=== PATIENT | male | born 1960 | race Caucasian/White ===

== ENCOUNTER → 2019-06-08 07:17 | Outpatient (BNVA) | payer OTHER, SELFPAY | PROVIDERS: Family Provider Nurse Practitioner Family; PCP Nurse Practitioner Family; Visit Provider Nurse Practitioner Family | DX: M79.10 Myalgia, unspecified site (principal); M54.32 Sciatica, left side; E78.5 Hyperlipidemia, unspecified; W57.XXXA Bitten or stung by nonvenomous insect and other nonvenomous arthropods, initial encounter; Z23 Encounter for immunization | CPT/HCPCS: 80053; 80061; 85025 ==

== ENCOUNTER 2019-06-10 10:21 | Outpatient (CLI) | payer OTHER, SELFPAY ==
--- NOTE | 2019-06-10 10:59 | XR_ITS ---
WS: [id number] LUMBAR SPINE: 3 VIEWS TECHNIQUE: AP, lateral and L5-S1 spot. HISTORY: BACK PAIN WITH LEFT SIDED SCIATICA COMPARISON: None available. Normal posterior alignment. Endplate hypertrophic osteophyte formation. No fractures or bone destruct ion. Pedicles are all identified. No loss of disc space or vertebral body height. SI joints are symmetric bilaterally. No soft tissue abnormalities. XR/XR lumbar spine 2-3V* [id number] IMPRESSION: Mild lumbar spondylosis. No fracture.
== END 2019-06-10 10:22 | disposition home or self-care (01) ==
PROVIDERS: Family Provider Nurse Practitioner Family; PCP Nurse Practitioner Family; Referring Provider Nurse Practitioner Family; Visit Provider Nurse Practitioner Family
DX: M54.32 Sciatica, left side (principal)
CPT/HCPCS: 72100

== ENCOUNTER → 2019-06-15 15:38 | Outpatient (BNVA) | payer OTHER, SELFPAY | PROVIDERS: Family Provider Nurse Practitioner Family; PCP Nurse Practitioner Family; Visit Provider Nurse Practitioner Family | DX: Z01.89 Encounter for other specified special examinations (principal) ==

== ENCOUNTER → 2020-04-05 14:23 | Outpatient (BNVA) | payer OTHER, SELFPAY | PROVIDERS: Family Provider Nurse Practitioner Family; PCP Nurse Practitioner Family; Visit Provider Nurse Practitioner Family | DX: Z11.59 Encounter for screening for other viral diseases (principal); J06.9 Acute upper respiratory infection, unspecified; J43.9 Emphysema, unspecified | CPT/HCPCS: 87635 ==

== ENCOUNTER → 2020-12-15 16:03 | Outpatient (BNVA) | payer OTHER, SELFPAY | PROVIDERS: Family Provider Nurse Practitioner Family; PCP Nurse Practitioner Family; Visit Provider Nurse Practitioner Family | DX: E78.5 Hyperlipidemia, unspecified (principal); M79.10 Myalgia, unspecified site; F41.9 Anxiety disorder, unspecified; F32.9 Major depressive disorder, single episode, unspecified; Z12.5 Encounter for screening for malignant neoplasm of prostate; Z00.00 Encounter for general adult medical examination without abnormal findings; J43.9 Emphysema, unspecified; Z12.11 Encounter for screening for malignant neoplasm of colon | CPT/HCPCS: 80053; 80061; 82306; 84443; 85025; G0103 ==

== ENCOUNTER → 2021-03-22 12:02 | Outpatient (BNVA) | payer OTHER, SELFPAY | PROVIDERS: Family Provider Nurse Practitioner Family; PCP Nurse Practitioner Family; Visit Provider Family Medicine | DX: Z12.5 Encounter for screening for malignant neoplasm of prostate (principal); Z12.11 Encounter for screening for malignant neoplasm of colon; R39.198 Other difficulties with micturition; Z76.89 Persons encountering health services in other specified circumstances; N40.0 Benign prostatic hyperplasia without lower urinary tract symptoms; E78.2 Mixed hyperlipidemia | CPT/HCPCS: 84153; 84443 ==

== ENCOUNTER → 2021-04-05 16:37 | Outpatient (BNVA) | payer OTHER, SELFPAY | PROVIDERS: Family Provider Nurse Practitioner Family; PCP Nurse Practitioner Family; Visit Provider Family Medicine | DX: N40.0 Benign prostatic hyperplasia without lower urinary tract symptoms (principal); G56.92 Unspecified mononeuropathy of left upper limb; M54.32 Sciatica, left side; Z12.11 Encounter for screening for malignant neoplasm of colon | CPT/HCPCS: 81003; 87086 ==

== ENCOUNTER 2021-04-20 12:43 | Outpatient (CLI) | payer OTHER, SELFPAY ==
--- NOTE | 2021-04-20 13:00 | XR_ITS ---
WS: [id number] LUMBAR SPINE: 3 VIEWS TECHNIQUE: AP, lateral and L5-S1 spot. HISTORY: Lumbar back pain, LE weakness. COMPARISON: 06/10/2019 Posterior alignment is normal taking into consideration the mild rotation of the vertebral bodies. Pe dicles are all identified. No fractures. Disc spaces are mildly narrowed with mild facet joint arthritis at L4-5 and L5-S1. SI joints are symmetric bilaterally. No soft tissue abnormalities. XR/XR lumbar spine 2-3V* [id number] IMPRESSION: Mild lumbar spondylosis. Similar as compared to the prior study of 06/10/2019. No fractures.
== END 2021-04-20 12:44 | disposition home or self-care (01) ==
PROVIDERS: PCP Family Medicine; Visit Provider Family Medicine
DX: R53.1 Weakness (principal); M47.816 Spondylosis without myelopathy or radiculopathy, lumbar region
CPT/HCPCS: 72100

== ENCOUNTER → 2021-06-08 09:24 | Outpatient (BNVA) | payer OTHER, SELFPAY | PROVIDERS: PCP Family Medicine; Visit Provider Family Medicine | DX: E78.2 Mixed hyperlipidemia (principal); G56.92 Unspecified mononeuropathy of left upper limb; N40.0 Benign prostatic hyperplasia without lower urinary tract symptoms; M54.50 Low back pain, unspecified | CPT/HCPCS: 80048; 80061 ==

== ENCOUNTER → 2021-06-23 15:42 | Outpatient (BNVA) | payer OTHER, SELFPAY | PROVIDERS: PCP Family Medicine; Visit Provider Surgery | DX: Z20.822 Contact with and (suspected) exposure to COVID-19 (principal); Z11.52 Encounter for screening for COVID-19 | CPT/HCPCS: 87635 ==

== ENCOUNTER 2021-07-26 07:46 | Day surgery (SDC) | payer OTHER, SELFPAY ==
[2021-07-24 10:06] VITALS: BMI 33.9
--- NOTE | 2021-07-26 07:52 | P.ANESASSM_ITS ---
Pre-Anesthetic Assessment Height/Weight: Height 1.96 m Weight 129.727 kg Operation Date: 07/26/21 09:30 Proposed Procedures p Colonoscopy 66882/ Z12.11(Not Applicable) - Amrik Garcia MD Familial anesthetic complications: None Was Beta Alexsandra taken within 24 hours: N/A Was Clonidine taken within 24 hours: N/A Last intake: > 8 hrs Social No alcohol and No tobacco Exam alert, oriented x 3, clear to auscultation bilaterally and regular rate & rhythm Airway Cervical ROM: within normal limits Mallampati: Class I Dentition: chipped Pulmonary Asthma (childhood) and Chronic Obstructive Pulmonary Disease (seen on cxr - has inhaler, but goes months without requiring it) Musc/skel Lower Back Pain and Osteoarthritis/DJD Anesthetic Plan ASA status: 2 Anesthesia: MAC Medications/Allergies Home Medications Medication Instructions Recorded Confirmed Last Taken Type albuterol sulfate 90 mcg/actuation 2 puff INHALATION Q6H PRN #18 gm 12/15/20 07/24/21 Unknown Rx aerosol inhaler sertraline 50 mg tablet (Zoloft) 50 mg PO DAILY #30 tab 12/15/20 07/24/21 Unknown Rx simvastatin 20 mg tablet 20 mg PO DAILY #30 tab 03/22/21 07/24/21 Unknown Rx gabapentin 600 mg tablet 600 mg PO BID #60 tab 07/04/21 07/24/21 Unknown Rx acetylcysteine 600 mg tablet (NAC) 600 mg PO DAILY 07/24/21 07/24/21 Unknown History cholecalciferol (vitamin D3) 125 125 mcg PO DAILY 07/24/21 07/24/21 Unknown History mcg (5,000 unit) tablet (Vitamin D3) Allergies Allergy/AdvReac Type Severity Reaction Status Date / Time Hgwxxwz-NVP-LwI Reductase Allergy muscle Verified 06/08/21 08:29 Inhibitor weakness [Fxgdhlo-Cjx-Dut Reductase Inhibitor] [facility] Anesthesia Medical History (Updated 04/27/21 @ 12:31 by Jose Chiang DO) Anxiety and depression Hyperlipidemia Obesity Seasonal allergies Family History Mother Cancer mother has history of breast cancer Father Cancer father from throat cancer Social History Smoking and tobacco status: never smoked Quit status (tobacco): has quit using tobacco Year quit tobacco: 2012 Former quit date comment: smoked 2 PPD x 30 yrs Second hand smoke exposure: No Alcohol intake: never Lives independently: Yes Household members: spouse Marital status: Current occupational status: employed History of recent travel: No Current gender identity: Male Data Anesthesia Cardiac Studies: No Data to Display
[2021-07-26 08:14] VITALS: BP 150/86; PULSE 96; RESP 16; TEMP 36.3; O2SAT 95
[2021-07-26] MEDS: sodium chloride 0.9% 1,000 ML 30 ML IV (08:17)
--- NOTE | 2021-07-26 08:57 | P.HP_ITS ---
Same Day Surgery H&P Indication for Procedure/HPI DATE OF PROCEDURE: July 26, 2021 CHIEF COMPLAINT/INDICATIONFOR SURGICAL PROCEDURE: screening PREOP DIAGNOSIS: diagnostic PLANNED PROCEDURE: Operation Date: 07/26/21 09:30 Proposed Procedures p Colonoscopy 48986/ Z12.11(Not Applicable) - Amrik Garcia MD Medications/Allergies* Home Medications Medication Instructions Recorded Confirmed Type acetylcysteine 600 mg tablet (NAC) 600 mg PO DAILY 07/24/21 07/24/21 History cholecalciferol (vitamin D3) 125 125 mcg PO DAILY 07/24/21 07/24/21 History mcg (5,000 unit) tablet (Vitamin D3) Kratom 5 g PO DAILY PRN 07/26/21 07/26/21 History Allergies/Adverse Reactions Allergy/AdvReac Type Severity Reaction Status Date / Time rosuvastatin [From Crestor] Allergy ADV-Weaknes Verified 07/26/21 08:06 s Current Medications: Generic Name Dose Route Start Last Admin Trade Name Freq PRN Reason Stop Dose Admin Sodium Chloride 1,000 mls @ 30 mls/hr 07/26/21 08:00 07/26/21 08:17 Sodium Chloride 0.9% IV 07/27/21 07:59 30 mls/hr .Q24H ROCHELLE Administration Pertinent History/Comorbid Conditions* Medical History (Updated 04/27/21 @ 12:31 by Jose Chiang DO) Anxiety and depression Hyperlipidemia Obesity Seasonal allergies Family History (Updated 06/08/19 @ 07:36 by Mora Lopez LPN) Father Cancer Mother mother has history of breast cancer Father father from throat cancer Social History Smoking and tobacco status: never smoked Quit status (tobacco): has quit using tobacco Year quit tobacco: 2012 Former quit date comment: smoked 2 PPD x 30 yrs Second hand smoke exposure: No Alcohol intake: never Lives independently: Yes Household members: spouse Marital status: Current occupational status: employed History of recent travel: No Current gender identity: Male Pertinent Exam Findings alert, oriented x 3 and regular rate & rhythm Recommendations Surgery/Procedure today Coding Level of Care Code Acute Extractor Operator Solvent Process for Humberto Camacho
[2021-07-26 10:09] VITALS: BP 100/51; PULSE 89; RESP 18; TEMP 36.2; O2SAT 97
[2021-07-26 10:22] VITALS: BP 110/63; PULSE 79; RESP 18; TEMP 36.3; O2SAT 96
--- NOTE | 2021-07-26 12:59 | ANE.PACU2 ---
Inpatient post-anesthesia follow up: Airway intact: Yes Vital signs: Temperature 97.4 F Pulse Rate 79 Respiratory Rate 18 Blood Pressure 110/63 Pulse Oximetry 96 Oxygen Delivery Me thod Room Air Oxygen Flow Rate Fraction of Inspir ed Oxygen Hydration adequate: Yes Nausea and vomiting: No Pain level: 1 Mental status: Baseline
== END 2021-07-26 10:34 | disposition home or self-care (01) ==
PROVIDERS: PCP Family Medicine; Visit Provider Surgery
PROC: 0DJD8ZZ Inspection of Lower Intestinal Tract, Via Natural or Artificial Opening Endoscopic (ICD-10-PCS; CPT 45378; principal; 2021-07-26 09:30)
DX: Z12.11 Encounter for screening for malignant neoplasm of colon (principal); K57.30 Diverticulosis of large intestine without perforation or abscess without bleeding; D12.3 Benign neoplasm of transverse colon; F41.9 Anxiety disorder, unspecified; F32.9 Major depressive disorder, single episode, unspecified; E78.5 Hyperlipidemia, unspecified; E66.9 Obesity, unspecified; Z68.33 Body mass index [BMI] 33.0-33.9, adult; Z87.891 Personal history of nicotine dependence; J44.9 Chronic obstructive pulmonary disease, unspecified
CPT/HCPCS: 45380; 88305; J2704; J7030

== ENCOUNTER 2022-04-07 17:02 | Emergency (ER) | payer OTHER, SELFPAY ==
[2022-04-07 17:06] VITALS: BMI 32.0
[2022-04-07 17:09] VITALS: BP 185/104; PULSE 81; RESP 18; TEMP 36.7; O2SAT 97
--- NOTE | 2022-04-07 17:35 | W.ED.EYEPROB ---
HPI - Eye Problem General: Chief complaint: Eye Problems Stated complaint: black spots in vision Time Seen by Provider: 04/07/22 17:13 Source: patient History of Present Illness: 62-year-old gentleman with a history of cataracts. He presents after beginning to notice black spots in his vision on the right side only while watching TV. He has a whispiness in the periphery of his vision as well. chief complaint: vision change Onset (ago): hour(s) (2) Onset description: gradual Duration: intermittent Location: right eye Eye Symptoms: other Place: home Mechanism: none Severity: moderate Associated symptoms: Reports headache(s) (mild right sided); Denies cough, fever(s), nausea, neck pain, numbness, rhinorrhea, short of breath, vomiting or weakness Treatments Prior to Arrival: none Review of Systems Const: Denies: fever(s) Eyes: Reports: change in vision; Denies: photophobia, eye discomfort or eye discharge ENMT: Denies: throat pain Card: Denies: chest pain GI: Denies: nausea or vomiting Musc: Denies: neck pain Neuro: Reports: headache(s) (mild right sided) PFSH ED PFSH: Medical History Anxiety and depression Hyperlipidemia Obesity Seasonal allergies Surgical History Status post colonoscopy with polypectomy (07/26/21) Mild sigmoid diverticulosis, 5 mm sessile transverse colon polyp and 1 cm sessile hepatic flexure polyp Family History Mother Cancer mother has history of breast cancer Father Cancer father from throat cancer Social History Smoking and tobacco status: never smoked Quit status (tobacco): has quit using tobacco Year quit tobacco: 2012 Former quit date comment: smoked 2 PPD x 30 yrs Second hand smoke exposure: No Alcohol intake: never Lives independently: Yes Household members: spouse Marital status: Current occupational status: employed History of recent travel: No Current gender identity: Male Physical Exam Const: COMMON NORMALS: no acute distress GENERAL APPEARANCE: cooperative HENMT: COMMON NORMALS: normocephalic, atraumatic and Normal external nose present HEAD & SCALP: normocephalic and atraumatic FACE & SINUS: normal facial exam and face symmetric NOSE: Normal external nose present Eye: COMMON NORMALS: Equal, round and reactive pupils present, EOMs intact bilaterally and conjunctivae normal GENERAL EYE: normal light reflex VISUAL ACUITY: Yes acuity normal ALIGNMENT: Yes alignment normal PERIORBITAL: periorbital findings normal EYELID: eyelids normal CONJUNCTIVA: Yes conjunctivae normal SCLERA: sclerae normal PUPIL: Yes Equal, round and reactive pupils present DIRECT OPHTHALMOSCOPY: Yes normal light reflex, Yes anterior chamber normal, No photophobia, No macular abnormality and No retinal abnormality (do not see a defect on fundo) Chest: CHEST: Yes Symmetrical chest wall rise Resp: COMMON NORMALS: normal respiratory effort, No use of accessory muscles and clear to auscultation bilaterally AUSCULTATION: clear to auscultation bilaterally Cardio: COMMON NORMALS: regular rate and regular rhythm RATE: regular rate RHYTHM: regular rhythm Neuro: EDEN COMA SCALE: document GCS findings [place] coma scale eye opening: Spontaneous [place] coma scale verbal response: Orientated [place] coma scale motor response: Obey commands [place] coma scale total score: 15 COMMON NORMALS: moves all extremities and no focal motor deficits SPEECH: speech normal Course Vital Signs: Vital signs: Vital Signs Temperature 98.1 F 04/07/22 17:09 Pulse Rate 78 04/07/22 18:37 Respiratory Rate 18 04/07/22 17:09 Blood Pressure 142/99 04/07/22 18:37 Pulse Oximetry 95 04/07/22 18:37 Oxygen Delivery Me thod 04/07/22 17:09 MDM - Eye Problem Medical Decision Making 62-year-old spotty vision in the right side which seems to be more like 1 spot in vision that seems to be more consistent, and appears whispy to him. In the differential diagnosis would be retinal problem versus an ocular migraine, as the patient does have a mild headache on the right side. He will be given sumatriptan to see if improving the headache improves his vision. Otherwise I have spoken with ophthalmology, and the recommendations are follow-up on Saturday morning in clinic for repeat exam since there is no fixed visual field loss currently. Discharge Plan Discharge Patient Disposition: Home Clinical Impression: Floaters in visual field Condition: Stable Prescriptions: No Action gabapentin 600 mg tablet 600 mg PO BID Qty: 60 5RF albuterol sulfate 90 mcg/actuation HFA aerosol inhaler See Rx Instructions .ROUTE .COMPLEX Qty: 17 5RF Dose Instruction: INHALE 2 PUFFS EVERY SIX HOURS NEEDED FORBRONCHOSPASM Rx Instructions: INHALE 2 PUFFS EVERY SIX HOURS NEEDED FORBRONCHOSPASM simvastatin 20 mg tablet See Rx Instructions .ROUTE .COMPLEX Qty: 30 5RF Dose Instruction: TAKE ONE TABLET BY MOUTH DAILY Rx Instructions: TAKE ONE TABLET BY MOUTH DAILY sertraline [Zoloft] 50 mg tablet 50 mg PO DAILY Qty: 90 2RF cholecalciferol (vitamin D3) [Vitamin D3] 125 mcg (5,000 unit) Tablet 125 mcg PO DAILY NAC 600 mg Tablet 600 mg PO DAILY Kratom 5 g PO DAILY PRN (Reason: Pain) Discharge Orders: Discharge ED (Routine); Ordered 04/07/22 Ordered By: Matthew Gaines Referrals: Jose Chiang, [Primary Care Provider] - Edy Maguire [Physician] - 1-3 days Activity Restrictions/Additional Instructions: Do not lift push or pull anything heavy. Return for more permanent vision loss. Return for eye pain, any other concerning symptoms. Follow-up with ophthalmology as directed on Saturday morning. Go to the clinic around 8:30 in the morning. Coding Level of Care Code ED Oncology Research Rn for Humberto Camacho Exam Detailed
[2022-04-07 18:00] VITALS: BP 138/97; PULSE 70; O2SAT 93
[2022-04-07] MEDS: SUMAtriptan 6 mg/0.5 mL SDV SUBCUT (18:24)
[2022-04-07 18:37] VITALS: BP 142/99; PULSE 78; O2SAT 95
== END 2022-04-07 18:28 | disposition home or self-care (01) ==
PROVIDERS: Emergency Provider Emergency Medicine; PCP Family Medicine
DX: H43.391 Other vitreous opacities, right eye (principal)
CPT/HCPCS: 96372; 99284; J3030

== ENCOUNTER → 2022-04-23 10:30 | Outpatient (BNVA) | payer OTHER, SELFPAY | PROVIDERS: PCP Family Medicine; Visit Provider Family Medicine | DX: E78.5 Hyperlipidemia, unspecified (principal); N40.0 Benign prostatic hyperplasia without lower urinary tract symptoms; Z01.89 Encounter for other specified special examinations; Z23 Encounter for immunization | CPT/HCPCS: 80053; 80061; 83036; 84153 ==

== ENCOUNTER 2022-09-26 08:36 | Outpatient (CLI) | payer OTHER, SELFPAY ==
--- NOTE | 2022-09-26 08:48 | XR_ITS ---
WS: [id number] Exam: XR KUB [id number] Date/Time of Exam: 09/26/2022 8:48 AM Reason For Exam: Worsening Left sided pain No bowel obstruction or free air. Moderate amount retained stool in the left colon. No sign of organ enlargement. Regional bony elements are intact. Moderate amount stool in the rectosigmoid colon. XR/XR KUB [id number] IMPRESSION: 1. Moderate amount retained stool in the rectosigmoid and left colon. 2. No acute abdominal process noted.
== END 2022-09-26 08:37 | disposition home or self-care (01) ==
LOC: RAD 08:41
PROVIDERS: PCP Family Medicine; Visit Provider Family Medicine
DX: R10.9 Unspecified abdominal pain (principal)
CPT/HCPCS: 74018; 81000

== ENCOUNTER 2023-01-15 11:57 | Outpatient (CLI) | payer OTHER, SELFPAY ==
--- NOTE | 2023-01-15 12:15 | CT_ITS ---
WS: [id number] CT ABDOMEN AND PELVIS NONCONTRAST HISTORY: R10.9 - Unspecified abdominal pain TECHNIQUE: Imaging performed through the abdomen and pelvis. Coronal and sagittal reformats are submi tted. All CT scans at [facility] use at least one of these dose optimization techniques: auto mated exposure control; mA and/or kV adjustment per patient size (includes targeted exams where dose is matched to clinical indication); or iterative reconstruction. DLP: 950.18 mGy.cm COMPARISON: None available. Lower thorax: Lung bases are clear. Visualized heart is normal. No hiatal hernia. Liver: Normal size liver. No mass or bile duct dilatation. Gallbladder: Normal gallbladder. No pericholecystic fluid or cholelithiasis. No gallbladder wall thic kening. Pancreas: Normal size and attenuation. Normal pancreatic duct. No pancreatitis or mass. Spleen: Normal. Adrenal glands: Normal right adrenal gland. Large mass associated with the left adrenal gland with lo w-attenuation. Mass measures 3.7 x 4.7 cm and extends over a length of 4.5 cm. Hounsfield units are l ess than 10 suggesting this is probably a benign adenoma but due to its size needs to be further eval uated. Right kidney: Normal size kidney. Low-attenuation 1.4 cm mass in the posterior mid kidney. No hydrone phrosis. Left kidney: Normal size kidney with no mass or hydronephrosis. Aorta: Mild atherosclerosis abdominal aorta with no aneurysm. No free fluid, intraperitoneal air or significant lymphadenopathy. GI tract: Nondistended stomach. Several small bowel loops in the pelvis are mildly dilated measuring up to 2.9 cm. There is increasing material within the lumen resembling fecal material. Marked fecal r etention and tortuosity of the colon. Normal appendix. Mild diverticular disease without acute divert iculitis. Abdominal wall: Small umbilical hernia contains fat only. Pelvis: Bilateral patent inguinal canals contain fat only. Normally distended urinary bladder. Mild p rostate gland enlargement. No free fluid or adenopathy. Benign lipoma right iliopsoas muscle anterior to the right femoral head measures 2.7 cm. Osseous structures: Mild anterior wedging of T9 and T10. IMPRESSION: 1. Left adrenal mass measures 3.7 x 4.7 x 4.5 cm. Hounsfield units are low. This very likely may be an adenoma but due to its size needs to be further evaluated. Recommend follow-up adrenal mass CT pro tocol to determine washout values. 2. Mildly prominent small bowel loops in the pelvis with early changes of fecalization. This pattern can be seen with longstanding incomplete obstruction. There is no mass or obstructive site identifie d by this exam. Can be related to adhesions or internal hernia. 3. Mild atherosclerosis aorta. 4. Moderate constipation.
--- NOTE | 2023-01-15 12:16 | CT_ITS ---
WS: [id number] LDCT LUNG CANCER SCREENING HISTORY: NICOTINE DEPENDENCE, CIGARETTES TECHNIQUE: Axial imaging performed from the apices to 1 cm below the costophrenic angles. Coronal and sagittal reformats are submitted with axial MIP series. All CT scans at [facility] use at least one of these dose optimization techniques: automated exposure control; mA and/or kV adjustment per patient size (includes targeted exams where dose is matched to clinical indication); or iterativ e reconstruction. DLP: 113.41 mGy.cm DIvol: Mean CTDIvol: 2.50 (mGy) COMPARISON: None available. Diagnostic quality: Satisfactory Lungs: No pulmonary mass or nodules. No pneumonia. Mild dependent changes at the lung bases. No endob ronchial lesions. Heart: Normal size heart with no pericardial effusion.. Other findings: No significant mediastinal or hilar adenopathy. No hiatal hernia. Well-circumscribed left adrenal mass measures 4.9 x 3.0 cm. Hounsfield units are less than 10. No adrenal mass on the ri ght. Degenerative rotary scoliosis lumbar spine. Mild anterior wedging of T6, T7, T8, T9 and T10. IMPRESSION: CT/CT lung screening [id number] LUNG-RADS: 1S-Negative with Significant Findings FOLLOW UP: 12 Month: Continue annual screening with LDCT OTHER FINDINGS (S MODIFIER): Left adrenal mass, greater than 4 cm. Recommend ad renal mass CT protocol.
== END 2023-01-15 11:58 | disposition home or self-care (01) ==
LOC: RAD 11:57
PROVIDERS: PCP Family Medicine; Visit Provider Family Medicine
DX: Z12.2 Encounter for screening for malignant neoplasm of respiratory organs (principal); F17.219 Nicotine dependence, cigarettes, with unspecified nicotine-induced disorders; R10.9 Unspecified abdominal pain; E27.9 Disorder of adrenal gland, unspecified; I70.0 Atherosclerosis of aorta; K59.00 Constipation, unspecified
CPT/HCPCS: 71271; 74176

== ENCOUNTER 2023-02-08 12:37 | Outpatient (CLI) | payer OTHER, SELFPAY ==
--- NOTE | 2023-02-08 13:00 | CT_ITS ---
WS: [id number] CT ABDOMEN AND PELVIS WITH AND WITHOUT CONTRAST HISTORY: LEFT ADRENAL MASS TECHNIQUE: Unenhanced 2 mm axial imaging first performed through the abdomen. Post contrast imaging t hrough the abdomen and pelvis. Oral contrast has been provided. Sagittal and coronal reformats are s ubmitted. All CT scans at [facility] use at least one of these dose optimization techniques: automated exposure control; mA and/or kV adjustment per patient size (includes targeted exams where d ose is matched to clinical indication); or iterative reconstruction. CONTRAST: Omnipaque 350; 95 mL IV. DLP: 2854.30 mGy.cm COMPARISON: 01/15/2023 Slight elevation of the LEFT hemidiaphragm with LEFT basilar atelectasis. Normal size heart. RIGHT adrenal gland: Normal. LEFT adrenal gland: Enlarged low-attenuation mass measuring 3.5 x 4.5 cm as previously described. Krysten nsfield units suggest this is an adenoma but the size is concerning and there is mild increased densi ty centrally. The absolute washout value and relative washout values cannot confirm this is a benign adenoma. A favor this is probably a lipid poor adenoma or adenoma with hemorrhage present because in the washout values to be abnormal. Negative liver and gallbladder. Normal pancreas and spleen. Negative gallbladder. No renal obstructio n. Cortical cyst RIGHT kidney measures 1.2 cm. No GI tract obstruction. Prominent small bowel loop within the pelvis is no longer present. Marked di ffuse constipation. Normal appendix. No adenopathy or ascites. Small ventral abdominal wall hernia. P rostate gland enlargement. No destructive process of the bones. IMPRESSION: 1. LEFT adrenal gland mass measures 3.5 x 4.5 cm. Noncontrast Hounsfield units suggest this is a omaira gn adenoma but due to its size additional characterization was necessary. The absolute and relative w ashout values cannot confirm this is a benign adenoma. I suspect the washout values may be abnormal b ecause of hemorrhage or lipid poor adenoma. This can be reevaluated by MRI adrenal gland protocol or 3 to 4-month follow-up CT adrenal gland protocol. 2. Diffuse constipation. 3. Resolved fecalization of the distal small bowel.
[2023-02-08 13:14] LABS: Blood Urea Nitrogen 22 mg/dL (8-23); Glomerular Filtration Rate 68.1 mL/min (90-130)
[2023-02-08] MEDS: iohexol 350 mg/mL 500 mL Btl (per mL) IV (13:27)
== END 2023-02-08 12:38 | disposition home or self-care (01) ==
PROVIDERS: PCP Family Medicine; Visit Provider Family Medicine
DX: E27.8 Other specified disorders of adrenal gland (principal); K59.00 Constipation, unspecified
CPT/HCPCS: 74178; 82565; 84520; Q9967

== ENCOUNTER 2023-04-30 10:39 | Outpatient (CLI) | payer OTHER, SELFPAY ==
--- NOTE | 2023-04-30 10:45 | MR_ITS ---
WS: [id number] MRI ADRENAL GLANDS WITH AND WITHOUT CONTRAST. COMPARISON: 01/15/2023 and 02/08/2023 Multiplanar, multisequence imaging is performed with and without contrast. MultiHance 14 mL. Multiple sequences are performed through the abdomen to evaluate the adrenal glands. In and out of ph ase imaging is included. On the out of phase images there is significant dropout of signal within the adrenal gland. There is still some very mild heterogeneity within the central LEFT adrenal mass. The re is slight variable enhancement. The variable signal is probably due to some areas of hemorrhage or increased protein content. The adrenal gland measures 3.3 x 4.7 cm and is similar in size to the ruiz or CTs. This is a well-circumscribed mass. Normal RIGHT adrenal gland. Cholelithiasis. RIGHT renal cyst 1.7 cm. No ascites. No adenopathy. IMPRESSION: 1. Well-circumscribed LEFT adrenal mass measures 3.3 x 4.7 cm with no interval change since 01/15/2023 . Majority of the LEFT adrenal mass demonstrates dropout signal consistent with an adenoma containing lipid. There is some very minimal heterogeneity which may be due to prior hemorrhage or proteinaceou s content. Statistically this is most likely a benign adenoma. Due to its size greater than 4 cm cons ider additional 6-month follow-up MRI adrenal glands with and without contrast to confirm stability. 2. Cholelithiasis.
[2023-04-30] MEDS: gadobenate dimeglumine 20 mL vial IV (11:47)
== END 2023-04-30 10:40 | disposition home or self-care (01) ==
LOC: RAD 10:39
PROVIDERS: PCP Family Medicine; Visit Provider Family Medicine
DX: E27.8 Other specified disorders of adrenal gland (principal); K80.20 Calculus of gallbladder without cholecystitis without obstruction
CPT/HCPCS: 74183; A9577

== ENCOUNTER 2023-08-06 06:20 | Outpatient (CLI) | payer OTHER, SELFPAY ==
--- NOTE | 2023-08-06 06:30 | USCV_ITS ---
Samantha Du Age: 63 Gender: M : 1960 Exam Date: 08/06/2023 06:24 Ordering Phys: Jose Chiang DO Technologist: CHLOÉ Exam Location: [facility] – [place], [place] Indication: RLE PAIN AND SWELLING HISTORY: Lower extremity swelling. Lower extremity pain. PROCEDURES: Venous duplex imaging was performed in only the right lower extremity. The following venous structures were evaluated: common femoral vein, profunda vein, proximal portion of the greater saphenous vein, superficial femoral vein, and the popliteal vein. In addition, the posterior tibial and peroneal trunk were evaluated. Serial compression, augmentation maneuvers, and spectral Doppler flow evaluation were performed. FINDINGS: No evidence of DVT seen in any vessel visualized at this time. CONCLUSIONS In Area of interested, compressible varicose veins seen No evidence of right lower extremity DVT. Yasmany Alejo MD (Electronically Signed) Final Date: 06 August 2023 08:53 S
== END 2023-08-06 06:21 | disposition home or self-care (01) ==
LOC: RAD 06:20
PROVIDERS: PCP Family Medicine; Visit Provider Family Medicine
DX: M79.89 Other specified soft tissue disorders (principal); M79.661 Pain in right lower leg; R22.43 Localized swelling, mass and lump, lower limb, bilateral
CPT/HCPCS: 93971

== ENCOUNTER → 2023-08-15 10:40 | Outpatient (BNVA) | payer OTHER, SELFPAY | PROVIDERS: PCP Family Medicine; Visit Provider Family Medicine | DX: E78.2 Mixed hyperlipidemia; J43.9 Emphysema, unspecified; N40.1 Benign prostatic hyperplasia with lower urinary tract symptoms; R39.12 Poor urinary stream; Z12.5 Encounter for screening for malignant neoplasm of prostate | CPT/HCPCS: 80053; 80061; 84443; 85025; G0103 ==

== ENCOUNTER 2024-01-16 06:56 | Outpatient (CLI) | payer OTHER, SELFPAY ==
--- NOTE | 2024-01-16 07:10 | MR_ITS ---
WS: [id number] MRI ADRENAL GLANDS WITH AND WITHOUT CONTRAST. COMPARISON: Prior MRI 04/30/2023, CT 02/08/2023, 01/15/2023 Multiplanar, multisequence imaging is performed with and without contrast. MultiHance 20 mL. Reidentified is a well-circumscribed but variable signal mass in the LEFT adrenal gland. Mass measure s 3.4 cm transversely by 4.5 cm anterior-posterior and 4.5 cm superior-inferior. Mass has not changed significantly in size and is well circumscribed. On the out of phase imaging there is loss of signal but there is also variable enhancement. The pattern is not typical for a benign adenoma. There is co ntinued without washout early. There is variable signal on the T2 sequences with central increased si gnal. The RIGHT adrenal gland is negative. There are benign cysts within each kidney which do not enhance. No adenopathy. Cholelithiasis with suspected on the prior study but not confirmed by this MRI exam. V isualized colon demonstrates fecal retention and constipation. MR/MR adrenals wo/w con [id number] IMPRESSION: 1. Reidentified is a LEFT adrenal mass measuring 3.4 x 4.5 x 4.5 cm which has not significantly increased in size since 04/22/[address] 01/15/2023. There is loss of signal on the out of phase sequence but there is also variable enhancem ent which persists on the delayed sequences. This may be an atypical adenoma bu t this cannot be confirmed by MRI or CT. Adrenal cortical carcinoma should be c onsidered. Does not have the typical enhancement pattern for pheochromocytoma. Recommend surgical evaluation with possible removal. 2. Negative RIGHT adrenal gland. Notified Jose Chiang DO at 01/16/2024 8:40 AM.
[2024-01-16] MEDS: gadobenate dimeglumine 20 mL vial IV (08:34)
== END 2024-01-16 06:57 | disposition home or self-care (01) ==
LOC: RAD 06:58
PROVIDERS: PCP Family Medicine; Visit Provider Family Medicine
DX: E27.8 Other specified disorders of adrenal gland (principal)
CPT/HCPCS: 74183; A9577

== ENCOUNTER 2024-02-28 07:57 | Outpatient (CLI) | payer OTHER, SELFPAY ==
--- NOTE | 2024-02-28 08:00 | CT_ITS ---
WS: [id number] LDCT LUNG CANCER SCREENING TECHNIQUE: Noncontrast CT of the chest with coronal and sagittal reformatted images. CLINICAL INFORMATION: screening COMPARISON: 2022 DLP: 134.71 mGy.cm DIvol: Mean CTDIvol: 2.80 (mGy) All CT scans at [facility] use at least one of these dose optimization techniques: automat ed exposure control; mA and/or kV adjustment per patient size (includes targeted exams where dose is matched to clinical indication); or iterative reconstruction. FINDINGS: No new suspicious pulmonary parenchymal abnormalities. Tiny 3 mm noncalcified nodule LEFT upper lobe. Subsegmental atelectasis in the lingula and RIGHT middle lobe. Subsegmental atelectasis LEFT lower lo be. Normal caliber thoracic aorta. Calcified LEFT hilar nodes. No mediastinal or hilar lymphadenopath y. No axillary lymphadenopathy. Stable LEFT adrenal nodule likely adenoma measuring 4.5 cm. Stable chronic anterior wedging of the [facility] spine CT/CT lung screening [id number] IMPRESSION: LUNG-RADS: 2-Benign Appearance or Behavior FOLLOW UP: 12 Month: Continue annual screening with LDCT
== END 2024-02-28 07:58 | disposition home or self-care (01) ==
LOC: RAD 07:57
PROVIDERS: PCP Family Medicine; Visit Provider Family Medicine
DX: Z12.2 Encounter for screening for malignant neoplasm of respiratory organs (principal); F17.219 Nicotine dependence, cigarettes, with unspecified nicotine-induced disorders; J98.11 Atelectasis; I89.8 Other specified noninfective disorders of lymphatic vessels and lymph nodes; D35.02 Benign neoplasm of left adrenal gland
CPT/HCPCS: 71271

== ENCOUNTER 2024-08-31 11:28 | Outpatient (CLI) | payer OTHER, SELFPAY ==
[2024-08-31 12:33] LABS: Basophils % 0.2 %; Eosinophils # 0.1 10^3/uL (0.0-0.8); Eosinophils % 1.2 %; Hematocrit 40.7 % (37-53); Lymphocytes # 1.7 10^3/uL (0.8-4.8); Lymphocytes % 25.9 %; Mean Corpuscular HGB Conc 32.4 g/dL (30-55); Mean Corpuscular Hemoglobin 31.2 pg (27-33); Mean Corpuscular Volume 96.2 fl (82-101); Mean Platelet Volume 10.8 fL (7.4-10.4); Monocytes # 0.4 10^3/uL (0.2-0.9); Neutrophils # 4.34 10^3/uL (1.8-7.7); Neutrophils % 66.4 %; Nucleated Red Blood Cells % 0 %; Platelet Count 181 10^3/cmm (157-399); Red Blood Count 4.23 10^6/uL (3.85-5.65); Red Cell Distribution Width 12.8 % (12.1-15.1); White Blood Count 6.53 10^3/uL (3.29-11.43)
[2024-08-31 13:05] LABS: Alanine Aminotransferase 7 U/L (0-41); Albumin Level 4.4 g/dL (3.5-5.2); Alkaline Phosphatase 63 U/L (40-130); Anion Gap 13.9 (5-19); Aspartate Amino Transferase 14 U/L (0-40); Blood Urea Nitrogen 15 mg/dL (8-23); Calcium 8.8 mg/dL (8.5-10.5); Carbon Dioxide 27 mmol/L (22-29); Chloride 102 mmol/L (98-107); Chol HDL Ratio 2.76 mg/dL (1.0-5.00); Cholesterol 210 mg/dL (0-200); Cortisol Random 5.72 ug/dL (2.47-19.5); Globulin 2.7 g/dL (1.3-4.6); Glomerular Filtration Rate 97.6 mL/min (90-130); Glucose 97 mg/dL (65-115); HDL Cholesterol 76 mg/dL (60-100); LDL Cholesterol Calculated 120 mg/dL (50-129); LDL HDL Ratio 1.58 RATIO (0.00-3.22); Osmolality Calculated 287 mOsm/kg (285-295); Potassium 4.9 mmol/L (3.5-5.1); Sodium 138 mmol/L (136-145); Total Bilirubin 0.3 mg/dL (0.15-1.2); Total Protein 7.1 g/dL (6.6-8.7); Triglycerides 68 mg/dL (0-150)
== END 2024-08-31 11:29 | disposition home or self-care (01) ==
LOC: LAB 11:32
PROVIDERS: PCP Family Medicine; Visit Provider Family Medicine
DX: E27.8 Other specified disorders of adrenal gland (principal); E78.5 Hyperlipidemia, unspecified
CPT/HCPCS: 36415; 80053; 80061; 82088; 82384; 82533; 82570; 85025; 90686

== ENCOUNTER 2024-12-23 07:54 | Outpatient (CLI) | payer OTHER, SELFPAY ==
--- NOTE | 2024-12-23 08:00 | MR_ITS ---
WS: [id number] MRI/MRCP OF THE ABDOMEN WITHOUT GADOLINIUM ENHANCEMENT TECHNIQUE: Coronal T2 Fase BH, Axial T2 Fase BH, Axial T2 FS BH, Zxial 3D Figueroa BH, Axial DWI BH, 2D MRCP Radial BH, 3D MRCP (Resp), and Axial 3D Dyn BH Post sequences. CLINICAL INFORMATION: adrenal mass COMPARISON: Multiple prior studies including MRI 01/16/2024 and 04/30/2023 FINDINGS: Previously described adrenal mass with variable enhancement and signal dropout on the out of phase imaging is stable in size measuring 3.5 x 4.5 cm. This is not significant changed compared to the prior studies. Normal RIGHT adrenal gland. No hydronephrosis in either kidney. Small bilateral renal cysts. Tiny esophageal hiatal hernia. Normal visualized pancreas. Normal portal vein and splenic vein. Normal gallbladder. Small hepatic cyst. MR/MR adrenals wo/w con [id number] Impression: 1. No change in the previously described LEFT adrenal mass measuring 3.5 x 4.5 cm. This does demonstrate signal dropout on the out of phase imaging, however this remains indeterminant due to variable heterogeneous enhancement and large size. Considerations include atypical adenoma or adrenal cortical carcinoma fabián ecially considering large size. Recommend continued surveillance if resection i s not performed. 2. RIGHT adrenal gland is normal. 3. No other suspicious findings.
[2024-12-23] MEDS: gadobenate dimeglumine 20 mL vial IV (08:35)
== END 2024-12-23 07:55 | disposition home or self-care (01) ==
PROVIDERS: PCP Family Medicine; Visit Provider Family Medicine
DX: E27.8 Other specified disorders of adrenal gland (principal)
CPT/HCPCS: 74183; A9577

== ENCOUNTER 2025-04-21 07:33 | Outpatient (CLI) | payer OTHER, SELFPAY ==
--- NOTE | 2025-04-21 07:45 | CT_ITS ---
WS: [id number] LDCT LUNG CANCER SCREENING TECHNIQUE: Noncontrast CT of the chest with coronal and sagittal reformatted images. CLINICAL INFORMATION: screening COMPARISON: 2023 DLP: 164.51 mGy.cm DIvol: Mean CTDIvol: 3.40 (mGy) All CT scans at [facility] use at least one of these dose optimization techniques: automated exposure control; mA and/or kV adjustment per patient size (includes targeted exams where dose is matched to clinical indication); or iterative reconstruction. FINDINGS: No new suspicious pulmonary parenchymal abnormalities. 4 mm nodule LEFT upper lobe laterally unchanged. Tiny noncalcified nodule RIGHT middle lobe. Few tiny micronodules in the RIGHT lower lobe. Subsegmental atelectasis in the lingula and RIGHT middle lobe. Normal caliber thoracic aorta. Calcified LEFT hilar nodes. No mediastinal or hilar lymphadenopathy. No axillary lymphadenopathy. Stable LEFT adrenal adenoma measuring 4.5 cm. Thoracic kyphosis. Thoracic curve. Chronic anterior wedging in the midthoracic spine similar to previous. CT/CT lung screening [id number] IMPRESSION: LUNG-RADS: 2-Benign Appearance or Behavior FOLLOW UP: 12 Month: Continue annual screening with LDCT
== END 2025-04-21 07:34 | disposition home or self-care (01) ==
LOC: RAD 07:34
PROVIDERS: PCP Family Medicine; Visit Provider Family Medicine
DX: Z12.2 Encounter for screening for malignant neoplasm of respiratory organs (principal); F17.219 Nicotine dependence, cigarettes, with unspecified nicotine-induced disorders; R91.1 Solitary pulmonary nodule; J98.11 Atelectasis; D35.02 Benign neoplasm of left adrenal gland; M40.204 Unspecified kyphosis, thoracic region; M48.54XS Collapsed vertebra, not elsewhere classified, thoracic region, sequela of fracture; X58.XXXS Exposure to other specified factors, sequela
CPT/HCPCS: 71271